=== PATIENT | female | born 1975 | race Caucasian/White ===

== ENCOUNTER → 2018-12-15 10:35 | Outpatient (CLI) | payer OTHER, SELFPAY ==
--- NOTE | 2018-12-15 | DI.MG.S_ITS ---
BILATERAL DIGITAL SCREENING MAMMOGRAM 3D/2D WITH CAD: 12/15/2018 CLINICAL: Routine screening. Family history of breast cancer. Comparison is made to exams dated: 10/11/2016 mammogram, 10/08/2015 mammogram, and 08/14/2014 mammogram - [facility]. The tissue of both breasts is heterogeneously dense. This may lower the sensitivity of mammography. Current study was also evaluated with a Computer Aided Detection (CAD) system. There are benign calcifications in both breasts. No significant masses, calcifications, or other findings are seen in either breast. There has been no significant interval change. IMPRESSION: There is no mammographic evidence of malignancy. A 1 year screening mammogram is recommended. This exam was interpreted at Station ID: [id number]. NOTE: For mammograms, a report in lay terms will be sent to the patient. Approximately 15% of breast malignancies will not be visualized mammographically. In the management of a palpable breast mass, a negative mammogram must not discourage biopsy of a clinically suspicious lesion. Electronically Signed By: Levy dawn/vimal:12/17/2018 07:52:52 copy to: Chan Gonzales letter sent: Normal Exam ACR BI-RADS Category 2: Benign Finding(s) 3342F
== END ==
PROVIDERS: PCP Family Medicine; Visit Provider Family Medicine
DX: Z12.31 Encounter for screening mammogram for malignant neoplasm of breast (principal); Z80.3 Family history of malignant neoplasm of breast
CPT/HCPCS: 77063; 77067

== ENCOUNTER → 2020-05-13 12:11 | Outpatient (CLI) | payer OTHER, SELFPAY ==
--- NOTE | 2020-05-13 12:24 | DI.MG.S_ITS ---
Patient Name: MARILU DOVER date: 1975 Sex: F Attending Physician: Car Indications: Date: 05/13/2020 12:22 At the request of: PIERRE GEORGE Procedure: MM screening mammo BI BILATERAL DIGITAL SCREENING MAMMOGRAM 3D/2D WITH CAD: 05/13/2020 CLINICAL: Routine screening. Family history of breast cancer. Comparison is made to exams dated: 12/15/2018 mammogram, 10/25/2016 mammogram, 10/11/2016 mammogram, and 10/08/2015 mammogram - [facility]. The tissue of both breasts is heterogeneously dense. This may lower the sensitivity of mammography. Current study was also evaluated with a Computer Aided Detection (CAD) system. There is an oval mass in the right breast at 12 o'clock middle depth. This is increased in size. No other significant masses, calcifications, or other findings are seen in either breast. IMPRESSION: INCOMPLETE: NEEDS ADDITIONAL IMAGING EVALUATION The oval mass in the right breast likely represents a cyst and is indeterminate. Additional views with possible ultrasound are recommended. This exam was interpreted at Station ID: [id number]. NOTE: For mammograms, a report in lay terms will be sent to the patient. Approximately 15% of breast malignancies will not be visualized mammographically. In the management of a palpable breast mass, a negative mammogram must not discourage biopsy of a clinically suspicious lesion. Electronically Signed By: Tasha Rodriguez M.D. lk/:05/13/2020 14:02:12 copy to: Chan Gonzales letter sent: Additional Imaging Needed ACR BI-RADS Category 0: Incomplete 3340F Continued Report - Page 2 of 2 Patient Name: MARILU DOVER date: 1975 Sex: F Attending Physician: Car Indications: Date: 05/13/2020 12:22 At the request of: PIERRE GEORGE Procedure: MM screening mammo BI
== END ==
PROVIDERS: PCP Family Medicine; Referring Provider Family Medicine; Visit Provider Family Medicine
DX: Z12.31 Encounter for screening mammogram for malignant neoplasm of breast (principal); Z80.3 Family history of malignant neoplasm of breast
CPT/HCPCS: 77063; 77067

== ENCOUNTER → 2020-06-11 12:41 | Outpatient (CLI) | payer OTHER, SELFPAY ==
--- NOTE | 2020-06-11 | DI.MG.S_ITS ---
UNILATERAL RIGHT DIGITAL DIAGNOSTIC MAMMOGRAM 3D/2D WITH ADDITIONAL VIEWS: 06/11/2020 CLINICAL: Additional evaluation requested from prior study. Comparison is made to exams dated: 05/13/2020 mammogram, 12/15/2018 mammogram, 10/11/2016 mammogram, and 10/08/2015 mammogram - [facility]. The tissue of right breast is heterogeneously dense. This may lower the sensitivity of mammography. There is a 1.5 cm oval mass with an obscured and circumscribed margin in the right breast at 12 o'clock middle depth. This is increased in size. No other significant masses or calcifications are seen in the breast. IMPRESSION: INCOMPLETE: NEEDS ADDITIONAL IMAGING EVALUATION The 1.5 cm oval mass in the right breast resembles a cyst and is indeterminate. A targeted ultrasound is recommended and will immediately follow. This exam was interpreted at Station ID: [id number]. NOTE: For mammograms, a report in lay terms will be sent to the patient. Approximately 15% of breast malignancies will not be visualized mammographically. In the management of a palpable breast mass, a negative mammogram must not discourage biopsy of a clinically suspicious lesion. Electronically Signed By: Steffen Murphy M.D. slc/sc:06/11/2020 13:08:30 copy to: Chan Gonzales ACR BI-RADS Category 0: Incomplete 3340F
--- NOTE | 2020-06-11 | DI.US.S_ITS ---
LIMITED ULTRASOUND OF RIGHT BREAST: 06/11/2020 CLINICAL: Patient returns today to evaluate a density in the right breast. Comparison is made to exams dated: 06/11/2020 mammogram, 05/13/2020 mammogram, 12/15/2018 mammogram, 10/25/2016 mammogram, and 10/11/2016 mammogram - [facility]. Color flow and real-time ultrasound of the right breast 12 o'clock region were performed. Duff scale images of the real-time examination were reviewed. There is a benign 1.7 cm x 1.5 cm x 0.9 cm oval cyst in the right breast at 12 o'clock middle depth 4 cm from the nipple. This oval cyst is anechoic with a well-defined boundary and posterior acoustic enhancement. This correlates with mammography findings. Color flow imaging demonstrates that there is no vascularity present. IMPRESSION: BENIGN There is no sonographic evidence of malignancy. Mass in the right breast corresponds to a 1.7 cm simple cyst and is benign. A 1 year screening mammogram is recommended. Exam findings were conveyed to the patient. This exam was interpreted at Station ID: [id number]. Electronically Signed By: Steffen soni/sc:06/11/2020 14:43:44 copy to: Chan Gonzales letter sent: Normal Exam Ultrasound BI-RADS: 2 Benign
== END ==
PROVIDERS: PCP Family Medicine; Referring Provider Family Medicine; Visit Provider Family Medicine
DX: R92.8 Other abnormal and inconclusive findings on diagnostic imaging of breast (principal); N60.01 Solitary cyst of right breast
CPT/HCPCS: 76642; 77065; G0279

== ENCOUNTER → 2020-12-09 08:48 | Outpatient (CLI) | payer OTHER, SELFPAY ==
[2020-12-09] MEDS: COVID-19 VACC #1, MRNA(MOD) 100 MCG/0.5 ML VIAL IM (08:53)
== END ==
PROVIDERS: PCP Family Medicine; Visit Provider Internal Medicine
DX: Z23 Encounter for immunization (principal)
CPT/HCPCS: 0011A; 91301

== ENCOUNTER → 2021-01-06 09:10 | Outpatient (CLI) | payer OTHER, SELFPAY ==
[2021-01-06 09:41] LABS: Add Manual Diff / Slide Review NO; Basophils Absolute Auto 100 /uL (0-100); Basophils Percent Auto 1.1 % (0-2); Eosinophils Absolute Auto 300 /uL (0-450); Eosinophils Percent Auto 4.6 % (2-4); Hematocrit 41.9 % (36-46); Hemoglobin 13.8 g/dL (12.0-16.0); Lymphocytes Absolute Auto 2400 /uL (1100-4500); Lymphocytes Percent Auto 39.2 % (25-40); Mean Corpuscular Hemoglobin 27.8 PG (26-34); Mean Corpuscular Volume 84.1 fL (80-100); Monocytes Absolute Auto 600 /uL (0-900); Monocytes Percent Auto 9.2 % (3-14); Neutrophils Absolute Auto 2900 /uL (1500-7000); Neutrophils Percent Auto 45.9 % (50-75); Platelet Count 298 X10^3/uL (150-400); Red Blood Cell Count 4.98 X10^6/uL (4.0-5.2); Red Cell Distribution Width 13.1 % (11.6-14.8); White Blood Cell Count 6.2 X10^3/uL (4.5-11.0)
[2021-01-06 10:02] LABS: Alanine Aminotransferase 32 IU/L (<35); Albumin 4.7 g/dL (3.5-5.0); Albumin Globulin Ratio 1.6 (1.0-2.8); Alkaline Phosphatase 55 U/L (38-126); Aspartate Aminotransferase 34 IU/L (14-36); BUN Creatinine Ratio 27.3 (6-22); Bilirubin Total 0.4 mg/dL (0.2-1.3); Blood Urea Nitrogen 15 mg/dL (7-17); Calcium 9.7 mg/dL (8.4-10.2); Carbon Dioxide 28 mmol/L (22-32); Chloride 100 mmol/L (98-107); Cholesterol 233 mg/dL (140-199); Estimated Glomerular Filt Rate > 60.0 mL/min (>60); Globulin 2.9 g/dL (1.7-4.1); Glucose 100 mg/dL (70-100); HDL Cholesterol 82 mg/dL (40-60); HEMOLYSIS < 15 (0-50); LDL Cholesterol Calculated 143 mg/dL (<100); Sodium 138 mmol/L (137-145); Total Protein 7.6 g/dL (6.3-8.2); Triglycerides 42 mg/dL (35-150)
[2021-01-06 10:18] LABS: Vitamin D 25 Hydroxy (D3) 52.1 ng/mL (30.0-100.0)
[2021-01-06 10:20] LABS: Free T3, Triiodothyronine Free 2.61 pg/mL (2.77-5.27); Free T4, Direct Thyroxine 0.77 ng/dL (0.78-2.19)
== END ==
PROVIDERS: PCP Family Medicine; Referring Provider Family Medicine; Visit Provider Family Medicine
DX: E03.9 Hypothyroidism, unspecified (principal); E55.9 Vitamin D deficiency, unspecified; R53.83 Other fatigue
CPT/HCPCS: 36415; 80053; 80061; 82306; 83036; 84439; 84443; 84481; 85025

== ENCOUNTER → 2021-01-06 10:58 | Outpatient (CLI) | payer OTHER, SELFPAY ==
[2021-01-06] MEDS: COVID-19 VACC #2, MRNA(MOD) 100 MCG/0.5 ML VIAL IM (11:06)
== END ==
PROVIDERS: PCP Family Medicine; Visit Provider Internal Medicine
DX: Z23 Encounter for immunization (principal)
CPT/HCPCS: 0012A; 91301

== ENCOUNTER → 2021-04-12 10:07 | Outpatient (CLI) | payer OTHER, SELFPAY ==
[2021-04-12 20:17] LABS: COVID19 - ORCAS (NP or Nasal) Negative (Negative)
== END ==
PROVIDERS: PCP Family Medicine; Visit Provider Physician Assistant
DX: Z20.822 Contact with and (suspected) exposure to COVID-19 (principal)
CPT/HCPCS: U0003

== ENCOUNTER → 2021-06-04 11:34 | Outpatient (CLI) | payer OTHER, SELFPAY ==
--- NOTE | 2021-06-04 11:35 | DI.MG.S_ITS ---
BILATERAL DIGITAL SCREENING MAMMOGRAM 3D/2D WITH CAD: 06/04/2021 CLINICAL: Routine screening. Family history of breast cancer. Comparison is made to exams dated: 06/11/2020 mammogram, 05/13/2020 mammogram, and 12/15/2018 mammogram - [facility]. The tissue of both breasts is heterogeneously dense. This may lower the sensitivity of mammography. Current study was also evaluated with a Computer Aided Detection (CAD) system. There is a benign cyst in the right breast. No significant masses, calcifications, or other findings are seen in either breast. There has been no significant interval change. IMPRESSION: BENIGN There is no mammographic evidence of malignancy. A 1 year screening mammogram is recommended. This exam was interpreted at Station ID: [id number]. NOTE: For mammograms, a report in lay terms will be sent to the patient. Approximately 15% of breast malignancies will not be visualized mammographically. In the management of a palpable breast mass, a negative mammogram must not discourage biopsy of a clinically suspicious lesion. Electronically Signed By: Levy dawn/vimal:06/04/2021 17:03:58 copy to: Chan Gonzales letter sent: Normal Exam ACR BI-RADS Category 2: Benign Finding(s) 3342F
== END ==
PROVIDERS: PCP Family Medicine; Referring Provider Family Medicine; Visit Provider Family Medicine
DX: Z12.31 Encounter for screening mammogram for malignant neoplasm of breast (principal); Z80.3 Family history of malignant neoplasm of breast
CPT/HCPCS: 77063; 77067

== ENCOUNTER → 2022-01-25 09:43 | Outpatient (CLI) | payer OTHER, SELFPAY ==
[2022-01-25 12:16] LABS: Follicle Stimulating Hormone 13.4 mIU/mL; Luteinizing Hormone 8.97 mIU/mL
[2022-01-25 12:32] LABS: Estradiol, Total 30.6 pg/mL
--- NOTE | 2022-01-25 14:23 | DI.US.S_ITS ---
PROCEDURE: US PELVIC COMPLETE INDICATIONS: AUB TECHNIQUE: Real-time scanning was performed of the pelvic organs, with image documentation. Additional endovaginal scanning was necessary due to incomplete visualization of the adnexal and endometrial structures by transabdominal scanning. COMPARISON: None. FINDINGS: Uterus: Uterus is anteverted and normal in size at 7.8 x 4.6 x 5.1 cm. The myometrium is homogeneous. The endometrium measures 10.7 mm combined thickness. No uterine fibroids. Ovaries: Right ovary measures 2.8 x 1.7 x 1.8 cm and the left 2.4 x 1.2 x 1.2 cm. 1.3 cm dominant right follicular cyst. Other: No pathologic free abdominal or pelvic fluid. IMPRESSION: 1.3 cm dominant right follicular cyst and no source for menorrhagia identified. We strive to produce accurate, complete, and clear reports of imaging services. To assist us in improving patient care, this report was composed using standard report templates and voice recognition software. Therefore, it may contain abnormal punctuation, insertions and/or omissions. Occasional wrong-word or sound-alike substitutions may occur. Though we review the report and make efforts to correct it, we do recommend that the report be read carefully in proper context to recognize any text inaccuracies. Dictated by: Michel LACY Interpreted: Shira Martinez MD on 01/25/2022 at 15:19 Transcribed by: EDEL on 01/25/2022 at 15:21 Approved by: Shira Martinez M.D. on 01/25/2022 at 17:28
== END ==
PROVIDERS: PCP Family Medicine; Referring Provider Obstetrics & Gynecology; Visit Provider Obstetrics & Gynecology
DX: N93.9 Abnormal uterine and vaginal bleeding, unspecified (principal); N95.9 Unspecified menopausal and perimenopausal disorder; N83.201 Unspecified ovarian cyst, right side
CPT/HCPCS: 36415; 76830; 76856; 82670; 83001; 83002

== ENCOUNTER → 2022-07-01 14:53 | Outpatient (CLI) | payer OTHER, SELFPAY ==
--- NOTE | 2022-07-01 | DI.MG.S_ITS ---
BILATERAL DIGITAL SCREENING MAMMOGRAM 3D/2D WITH CAD: 07/01/2022 CLINICAL: Routine screening. Family history of breast cancer. Comparison is made to exams dated: 06/04/2021 mammogram, 05/13/2020 mammogram, and 12/15/2018 mammogram - [facility]. Both breasts are heterogeneously dense, which may obscure small masses (category c / 51-75% glandular tissue). Current study was also evaluated with a Computer Aided Detection (CAD) system. There is a benign cyst in the right breast. No significant masses, calcifications, or other findings are seen in either breast. There has been no significant interval change. IMPRESSION: BENIGN There is no mammographic evidence of malignancy. A 1 year screening mammogram is recommended. This exam was interpreted at Station ID: [id number]. NOTE: For mammograms, a report in lay terms will be sent to the patient. Approximately 15% of breast malignancies will not be visualized mammographically. In the management of a palpable breast mass, a negative mammogram must not discourage biopsy of a clinically suspicious lesion. Electronically Signed By: Tasha elizabeth/vimal:07/01/2022 15:45:40 copy to: Chan Gonzales letter sent: Normal Exam ACR BI-RADS Category 2: Benign Finding(s) 3342F
== END ==
PROVIDERS: PCP Family Medicine; Referring Provider Family Medicine; Visit Provider Family Medicine
DX: Z12.31 Encounter for screening mammogram for malignant neoplasm of breast (principal); Z80.3 Family history of malignant neoplasm of breast
CPT/HCPCS: 77063; 77067

== ENCOUNTER → 2023-08-02 08:00 | Outpatient (CLI) | payer OTHER, SELFPAY ==
--- NOTE | 2023-08-02 | DI.MG.S_ITS ---
BILATERAL DIGITAL SCREENING MAMMOGRAM 3D/2D WITH CAD: 08/02/2023 CLINICAL: Routine screening. Family history of breast cancer. Comparison is made to exams dated: 07/01/2022 mammogram, 06/04/2021 mammogram, and 05/13/2020 mammogram - [facility]. Both breasts are heterogeneously dense, which may obscure small masses (category c / 51-75% glandular tissue). Current study was also evaluated with a Computer Aided Detection (CAD) system. There is a benign cyst in the right breast. No significant masses, calcifications, or other findings are seen in either breast. There has been no significant interval change. IMPRESSION: BENIGN There is no mammographic evidence of malignancy. A 1 year screening mammogram is recommended. Based on the Tyrer Cuzick model (a risk assessment model) the patient's lifetime risk is 17.0% and her 10 year risk is 3.7%. According to the ACR, ACS, and NCCN guidelines, an annual breast MRI exam along with mammogram is recommended if the patient's lifetime risk is 20% or greater. This exam was interpreted at Station ID: [id number]. NOTE: For mammograms, a report in lay terms will be sent to the patient. Approximately 15% of breast malignancies will not be visualized mammographically. In the management of a palpable breast mass, a negative mammogram must not discourage biopsy of a clinically suspicious lesion. Electronically Signed By: Jasper adan/vimal:08/03/2023 10:21:49 letter sent: Normal Exam ACR BI-RADS Category 2: Benign Finding(s) 3342F
== END ==
PROVIDERS: PCP Family Medicine; Referring Provider Family Medicine; Visit Provider Family Medicine
DX: Z12.31 Encounter for screening mammogram for malignant neoplasm of breast (principal); Z80.3 Family history of malignant neoplasm of breast
CPT/HCPCS: 77063; 77067

== ENCOUNTER → 2024-04-02 13:41 | Outpatient (CLI) | payer OTHER, SELFPAY ==
--- NOTE | 2024-04-02 14:00 | DI.US.S_ITS ---
PROCEDURE: US PELVIC COMPLETE INDICATIONS: prolonged vaginal bleeding TECHNIQUE: Real-time scanning was performed of the pelvic organs, with image documentation. Additional endovaginal scanning was necessary due to incomplete visualization of the adnexal and endometrial structures by transabdominal scanning. COMPARISON: [facility], , US PELVIC COMPLETE, 01/25/2022, 14:47. FINDINGS: Uterus: Uterus is anteverted and normal in size at 7.5 x 3.7 x 4.1 cm. The myometrium is homogeneous. The endometrium measures 6 mm combined thickness. No uterine fibroids. Ovaries: The right ovary measures 2.3 x 1.1 x 1.8 cm, with a calculated ovarian volume of 2.6 cc. The left ovary measures 1.9 x 1.1 x 1.3 cm, with a calculated ovarian volume of 1.7 cc. The ovaries have a normal sonographic appearance. Less than 12 follicles can be seen in each ovary. No adnexal masses are seen. Other: No pathologic free abdominal or pelvic fluid. IMPRESSION: The endometrium measures 6 mm. This is normal in thickness for a premenopausal female. If patient is postmenopausal with history of abnormal uterine bleeding, this is considered thickened and further evaluation with follow-up ultrasound or endometrial sampling is recommended. The uterus and ovaries are otherwise normal in appearance. We strive to produce accurate, complete, and clear reports of imaging services. To assist us in improving patient care, this report was composed using standard report templates and voice recognition software. Therefore, it may contain abnormal punctuation, insertions and/or omissions. Occasional wrong-word or sound-alike substitutions may occur. Though we review the report and make efforts to correct it, we do recommend that the report be read carefully in proper context to recognize any text inaccuracies. Dictated by: Ketan Delaney M.D. on 04/02/2024 at 17:57 Approved by: Ketan Delaney M.D. on 04/02/2024 at 18:00
== END ==
LOC: US 13:43
PROVIDERS: PCP Family Medicine; Referring Provider Obstetrics & Gynecology; Visit Provider Obstetrics & Gynecology
DX: N92.6 Irregular menstruation, unspecified (principal); N93.9 Abnormal uterine and vaginal bleeding, unspecified
CPT/HCPCS: 76856

== ENCOUNTER → 2024-11-14 11:28 | Outpatient (CLI) | payer OTHER, SELFPAY ==
--- NOTE | 2024-11-14 11:29 | DI.MG.S_ITS ---
MM screening mammo BI: 11/14/2024. BI-RADS: 2 CLINICAL: 49-year old female for bilateral screening mammogram. Tyrer-Cuzick lifetime risk of 19.7%. No personal or first-degree family history of breast cancer. Current reported family history of breast cancer: maternal grandmother. The patient had a prior left breast biopsy. PRIOR EXAMS 08/02/2023, 07/01/2022, 06/04/2021, 06/11/2020, 05/13/2020, 12/15/2018, 10/25/2016, 10/11/2016, 10/08/2015, 02/13/2015. MAMMOGRAPHY TECHNIQUE: 2D and 3D (tomosynthesis) digital mammographic views obtained, with additional images as needed for full coverage. Current study was also evaluated with a Computer Aided Detection (CAD) system. DENSITY C. The breasts are heterogeneously dense, which may obscure small masses. MAMMOGRAPHY FINDINGS Right: A benign appearing mass in the right breast has decreased in size compared to the prior. There are no suspicious masses, calcifications, or other findings in the breast. Left: There are no suspicious masses, calcifications, or other findings in the breast. IMPRESSION: * No evidence of malignancy with benign findings. RECOMMENDATIONS Bilateral * Annual screening mammography. OVERALL ASSESSMENT CATEGORY BI-RADS-2: Benign. The [employer] recommends annual screening mammography beginning at age 40 for women with average risk of breast cancer. ELECTRONICALLY SIGNED: Bianca Guy M.D. on 11/14/2024 at 04:37:55 PM PT Interpreting Station ID: [id number]
== END ==
PROVIDERS: PCP Family Medicine; Referring Provider Family Medicine; Visit Provider Family Medicine
DX: Z12.31 Encounter for screening mammogram for malignant neoplasm of breast (principal); Z80.3 Family history of malignant neoplasm of breast; R92.333 Mammographic heterogeneous density, bilateral breasts
CPT/HCPCS: 77063; 77067